=== PATIENT | female | born 1980 | race Asian ===

== ENCOUNTER 2020-01-15 14:26 | Outpatient (CLI) | payer OTHER ==
[2020-01-16 12:23] LABS: SARS-CoV-2 MS2 Positive; SARS-CoV-2 N Gene Negative; SARS-CoV-2 S Gene Negative; SARS-CoV-2 orf1ab Negative
== END 2020-01-15 14:27 | disposition home or self-care (01) ==
LOC: SCSLAB 14:26
PROVIDERS: ATTEND Obstetrics & Gynecology
DX: Z01.812 Encounter for preprocedural laboratory examination (principal); Z11.59 Encounter for screening for other viral diseases
CPT/HCPCS: 87635; U0003

== ENCOUNTER 2020-01-18 11:01 | Inpatient (IN) | payer OTHER, SELFPAY ==
--- NOTE | 2020-01-18 10:04 | HP ---
REASON FOR ADMISSION: A 38 to 39 weeks of gestation with medication-dependent diabetes for repeat section at 38 weeks. HISTORY OF PRESENT ILLNESS: Ms. Butts is an elderly multigravida 39-year-old, G3, P2, x2, who has adult-onset diabetes and hypothyroidism. She has been treated with glyburide through her and has had good glycemic control. She is for repeat section at 38 weeks as indicated for patients with White classification A2 and class B diabetes. 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 Blood type O negative, antibody negative. Pap negative. Rubella immune. VDRL nonreactive. Hepatitis B, GC, chlamydia negative. She is in good glycemic control. FER is 01/29. PAST MEDICAL HISTORY: Hypothyroidism. PAST SURGICAL HISTORY: section. ALLERGIES: DENIES. MEDICATIONS: Synthroid and glyburide. SOCIAL HISTORY: Denies tobacco, alcohol, or IV drug use. FAMILY HISTORY: Noncontributory. REVIEW OF SYSTEMS: Noncontributory. PHYSICAL EXAMINATION: GENERAL: Pleasant, Maur[place] female, 39 years old. VITAL SIGNS: Blood pressure 128/72, pulse 85, respirations 18. HEENT: Within normal limits. LUNGS: Clear to auscultation bilaterally. HEART: Regular rate and rhythm. ABDOMEN: Soft and nontender. Fundal height 41 cm. FHTs 140s. Vulva without lesions. Vagina without discharge. Cervix; closed, long, and high. EXTREMITIES: No clubbing, cyanosis, or edema. IMPRESSION: Gestational diabetes requiring glyburide, suspect probable nongestational adult-onset diabetes, prior section, advanced maternal age, mild hypothyroidism. PLAN: Repeat section on 01/17 with appropriate antibiotic and DVT prophylaxis. Job ID: [id number]
[2020-01-18] MEDS ORDERED: Promethazine HCl 25 MG/ML VIAL IM PRN ×3 (11:41→22:53)
[2020-01-18] MEDS ORDERED: Butorphanol Tartrate 1 MG/ML VIAL SLOW IVP PRN (11:41)
[2020-01-18] MEDS ORDERED: Ondansetron PF 4 MG/2 ML Vial IVP PRN ×3 (11:41→22:53)
[2020-01-18] MEDS ORDERED: Lactated Ringer's 1,000 ML IV SCH (11:41)
[2020-01-18] MEDS ORDERED: hydrALAZINE 20 MG/ML VIAL SLOW IVP PRN ×2 (11:41→22:53)
[2020-01-18 12:28] LABS: Hemoglobin 11.9 g/dL (12.0-16.0); Mean Corpuscular HGB CONC 31.7 g/dL (32.0-36.0); Mean Corpuscular Hemoglobin 24.9 pg (27.0-31.0); Mean Corpuscular Volume 78.6 fL (78.0-98.0); Mean Platelet Volume 9.2 fL (7.4-10.4); Platelet Count 185 thou/uL (130-400); Red Blood Cell (RBC) Count 4.76 mill/uL (4.20-5.40); White Blood Cell (WBC) Count 9.8 thou/uL (4.8-10.8)
[2020-01-18 13:04] LABS: HBSAg Index 0.13 S/CO (0-0.99); Hep B Surf Ag Non-Reactive S/CO (NonReactive); Syphilis Antibody Nonreactive (Nonreactive); Syphilis Antibody Index 0.03 S/CO (<1.00 Non-Reactive)
[2020-01-18 13:15] VITALS: BMI 34.3
[2020-01-18] MEDS ORDERED: Azithromycin 500 MG VIAL ONE (14:06)
[2020-01-18] MEDS ORDERED: Azithromycin 500 MG in Sodium Chloride 0.9% 250 ML 250 ML IVPB SCH (14:30)
[2020-01-18] MEDS ORDERED: Bicitra 30 ML UDCUP PO SCH (14:30)
[2020-01-18] MEDS ORDERED: CEFAZOLIN 2 GM in Premix Bag 1 BAG IVPB SCH (14:30)
[2020-01-18] MEDS: Lactated Ringer's 1,000 ML IV SCH ×2 (14:53→23:07)
[2020-01-18] MEDS ORDERED: Fentanyl 100 MCG/2 ML VIAL ONE (15:15)
[2020-01-18] MEDS ORDERED: EPHEDRINE 25 MG/5 ML SYRINGE ONE (15:16)
[2020-01-18] MEDS ORDERED: Oxytocin 10 UNITS/ML VIAL ONE (15:16)
[2020-01-18] MEDS ORDERED: Ketorolac Tromethamine 30 MG/ML VIAL ONE (15:16)
[2020-01-18] MEDS ORDERED: Ondansetron PF 4 MG/2 ML Vial ONE (15:16)
[2020-01-18] MEDS ORDERED: Dexamethasone 4 mg/ml Vial ONE (15:16)
[2020-01-18] MEDS ORDERED: PHENYLEPHRINE-NS 100 MCG/ML 10 ML SYRINGE ONE (15:16)
[2020-01-18] MEDS ORDERED: MORPHINE 5 MG/10 ML PF VIAL ONE (15:17)
[2020-01-18] MEDS ORDERED: Naloxone HCl 0.4 mg/ml Vial IVP PRN ×2 (16:44)
[2020-01-18] MEDS ORDERED: diphenhydrAMINE 50 MG/ML VIAL IVP PRN (16:44)
[2020-01-18] MEDS ORDERED: Ketorolac Tromethamine 30 MG/ML VIAL IVP PRN (16:44)
[2020-01-18] MEDS ORDERED: L&D-Morphine 4 MG/ML VIAL SLOW IVP PRN (16:44)
[2020-01-18] MEDS ORDERED: Promethazine HCl 25 MG SUPP PR PRN (16:44)
[2020-01-18] MEDS ORDERED: Ondansetron HCl/PF 4 MG/2 ML Vial IVP PRN (16:44)
[2020-01-18] MEDS ORDERED: Meperidine HCl/PF 25 MG/ML VIAL SLOW IVP PRN (16:44)
[2020-01-18] MEDS ORDERED: HYDROmorphone 2 MG/ML VIAL SLOW IVP PRN (16:44)
[2020-01-18] MEDS ORDERED: Naloxone HCl 0.4 mg/ml Vial IV PRN (16:44)
[2020-01-18] MEDS ORDERED: Communication Order-Pharmacy FS SCH (16:45)
--- NOTE | 2020-01-18 16:57 | OP ---
DATE OF PROCEDURE: 01/18/2020 PREOPERATIVE DIAGNOSES: Thirty-eight weeks gestation White classification A2, gestational diabetes with polyhydramnios, large for gestational age, and prior section. POSTOPERATIVE DIAGNOSES: Thirty-eight weeks gestation White classification A2, gestational diabetes with polyhydramnios, large for gestational age, and prior section plus macrosomia. PROCEDURE PERFORMED: Repeat low-transverse section without extension. ROBOTICS SPECIALIST: Fredy Humphreys MD, PGY-2. ANESTHESIA: Subarachnoid block. MEDICATIONS: 2 g Ancef and 500 Zithromax pre-incision. DVT prophylaxis, SCDs. DRAINS: Marsh to gravity. COMPLICATIONS: None. QBL: Approximately 600 mL. OPERATIVE FINDINGS: 1. Vigorous male infant, cephalic presentation, clear fluid, 10 pounds 11 ounces. Apgars 8 and 9 to nursery. 2. Normal-appearing placenta, except for large size. 3. Normal-appearing tubes and ovaries bilaterally. 4. Dense adhesions of uterus to anterior abdominal wall. 5. Hemostasis, clear urine. COUNTS: Correct at the end of the procedure. DISPOSITION: Recovery room in good condition. DESCRIPTION OF PROCEDURE: After obtaining appropriate informed consent, the patient was taken to the operating room and subarachnoid block was achieved without difficulty. The patient was prepped and draped in usual manner for section. Previous Pfannenstiel incised sharply. Incision carried down to the fascia, which was incised superiorly and laterally with curved Goldstein scissors. Rectus was dissected off sharply, superiorly, inferiorly. Dividing in the midline was very difficult due to dense adhesions to the anterior aspect of the uterus. These were taken down in a stepwise manner staying high to avoid injury to the bladder. Once entry into the peritoneal cavity was achieved, adhesions were noted and taken down in a lower uterine segment. Vesicouterine peritoneum was dissected off as well. Fabricio O retractor was placed inside. The lower uterine segment was noted to be quite thin just a few cell layers thick. It was incised sharply well above the level of the bladder. Clear fluid encountered. The infant's head elevated to the hysterotomy and the delivered on the abdomen. Cord clamped and cut, handed off the team in attendance. Usual cord blood sample obtained. Placenta removed manually. Uterus exteriorized, wrapped in a moist laparotomy sponge. Findings as noted. Hysterotomy was closed using a running locking #1 Monocryl suture. Areas of deserosalization of the uterus above the level the hysterotomy were rendered hemostatic using horizontal mattress sutures of #1 chromic. Good hemostasis was encountered; however, just due to the increased degree of ooziness encountered with deserosalization of the uterine musculature. FloSeal was placed across this area and was held pressure with a moist laparotomy sponge for 3 minutes. Good hemostasis was noted after placement. Gutters were irrigated out bilaterally, and re-inspection of the hysterotomy revealed it to be dry. The rectus was inspected, noted to be dry after removing the Fabricio O retractor. Fascia reapproximated using 0 PDS suture x2. Subcutaneous tissue irrigated, rendered hemostatic with Bovie cautery, reapproximated using a 2-0 plain gut. Skin reapproximated using 4-0 Monocryl and Dermabond, and the patient entered into routine postoperative recovery. Job ID: [id number]
[2020-01-18] MEDS ORDERED: Misoprostol 200 MCG TAB ONE (17:56)
[2020-01-18] MEDS ORDERED: Methylergonovine 0.2 MG/ML VIAL ONE (17:56)
[2020-01-18] MEDS ORDERED: Methylergonovine 0.2 MG/ML VIAL IM SCH (19:15)
[2020-01-18] MEDS ORDERED: Misoprostol 200 MCG TAB PR SCH (19:15)
[2020-01-18] MEDS ORDERED: NS / Oxytocin 40 units/1000ml 1,000 ML IV SCH (22:53)
[2020-01-18] MEDS ORDERED: diphenhydrAMINE 25 MG CAP PO PRN (22:53)
[2020-01-18] MEDS ORDERED: Zolpidem Tartrate 5 MG TAB PO PRN (22:53)
[2020-01-18] MEDS ORDERED: Lanolin Ointment 7 GM TUBE TOP PRN (22:53)
[2020-01-18] MEDS ORDERED: Docusate Calcium (SURFAK) 240 MG CAP PO SCH (23:15)
[2020-01-19] MEDS: Lactated Ringer's 1,000 ML IV SCH ×3 (00:11→14:21)
[2020-01-19] MEDS ORDERED: Meperidine HCl/PF 25 MG/ML VIAL IM PRN (04:45)
[2020-01-19] MEDS ORDERED: Butorphanol Tartrate 1 MG/ML VIAL SLOW IVP PRN (04:45)
[2020-01-19] MEDS: Levothyroxine Sodium 88 MCG TAB PO SCH (05:52)
[2020-01-19 07:00] LABS: Hemoglobin 8.7 g/dL (12.0-16.0); Mean Corpuscular HGB CONC 31.8 g/dL (32.0-36.0); Mean Corpuscular Hemoglobin 25.3 pg (27.0-31.0); Mean Corpuscular Volume 79.7 fL (78.0-98.0); Mean Platelet Volume 12.6 fL (7.4-10.4); Platelet Count 145 thou/uL (130-400); RBC Distribution Width 19.5 % (11.5-14.5); Red Blood Cell (RBC) Count 3.44 mill/uL (4.20-5.40)
--- NOTE | 2020-01-19 08:02 | PRG ---
DATE OF SERVICE: 01/19/2020 TIME OF SERVICE: 07. DICTATING FOR: [facility] obstetric hospitalist. SUBJECTIVE: The patient is postoperative day #1. She is resting comfortably. She states her pain is improving. She has ambulated already without any symptoms. OBJECTIVE: VITAL SIGNS: Temperature 98.5, pulse 76, respirations 18, blood pressure 124/56. GENERAL: The patient is resting comfortably. LUNGS: Clear to auscultation bilaterally. HEART: Regular rhythm. ABDOMEN: Soft, nontender, nondistended. Bowel sounds in all 4 quadrants. Incisions intact and dry. Fundus is firm. Perineum has normal lochia. EXTREMITIES: No clubbing, cyanosis, or edema. Marsh output was 800 mL. The patient has voided. Quantitative blood loss is reported as 2858. This is inaccurate as the recorded 2200 blood loss of 1512 was total including the ones recorded by Joyce Lazcano in the chart. Total QBL is approximately 1500 to 1800 mL. LABORATORY DATA: Hematocrit went from 37% to 27.5% with stable platelet count. This is consistent with the patient's QBL. Glucose is 116 this morning, checking every 6 hours. We will discharge as the patient obviously will not need oral antihyperglycemics in the immediate postoperative period. IMPRESSION: A2 diabetes, advanced maternal age, status post repeat section x3, with uterine atony secondary to macrosomia. PLAN: Routine postoperative care. The patient's analgesics have already been sent out electronically to pharmacy preoperatively. Anticipate discharge home on Wednesday, 01/20 with followup at [facility]. Job ID: [id number]
[2020-01-19] MEDS: Docusate Calcium (SURFAK) 240 MG CAP PO SCH ×2 (08:36→22:50)
[2020-01-19] MEDS: Prenatal Vitamin 1 TAB PO SCH (08:36)
[2020-01-19] MEDS ORDERED: Adacel (T-DAP) 0.5 ML SYRINGE IM ONE (09:00)
[2020-01-19] MEDS: HYDROcodone/Acetaminophen 5/325 mg Tablet PO PRN ×3 (10:01→20:31)
[2020-01-19] MEDS: Ibuprofen 800 MG TAB PO SCH (22:51)
[2020-01-20] MEDS: Lactated Ringer's 1,000 ML IV SCH ×3 (00:31→14:46)
[2020-01-20] MEDS: Levothyroxine Sodium 88 MCG TAB PO SCH (05:54)
[2020-01-20] MEDS: Ibuprofen 800 MG TAB PO SCH ×3 (05:54→20:33)
--- NOTE | 2020-01-20 07:23 | PDOC.PP ---
Post Progress Note Post Day #: Post op day 2.. Subjective: Some pain in incision but oral meds helping... PO intake tolerated: yes Flatus: yes Ambulation: yes Vital Signs (12 hours) Temp Pulse Resp BP Pulse Ox 01/20/20 04:50 98.0 F 78 18 110/70 97 01/20/20 00:10 98.7 F 84 18 105/53 L 95 01/19/20 20:30 98.2 F 79 18 119/68 100 Weight Weight 194 lb - Physical Examination Abdominal: + bowel sounds, lochia, no distention, appropriately TTP Result Diagrams: 01/19/20 05:38 Additional Labs: Post Labs Blood Type O NEGATIVE 01/18/20 12:36 Hep Bs Antigen Non-Reactive S/CO (NonReactive) 01/18/20 12:11 - Assessment/Plan Post op day 2 from repeat c/s...Gestational diabetes-glycemic control adequate..Accuchek <150. Progressing well. AMA. Anticipate discharge in AM. Pain meds have been sent by Dr Erickson.
[2020-01-20] MEDS: Prenatal Vitamin 1 TAB PO SCH (09:03)
[2020-01-20] MEDS: Docusate Calcium (SURFAK) 240 MG CAP PO SCH ×2 (09:03→20:33)
[2020-01-20] MEDS: HYDROcodone/Acetaminophen 5/325 mg Tablet PO PRN ×2 (10:28→14:42)
[2020-01-21] MEDS: HYDROcodone/Acetaminophen 5/325 mg Tablet PO PRN ×2 (00:11→12:56)
[2020-01-21] MEDS: Ibuprofen 800 MG TAB PO SCH ×2 (04:13→13:56)
[2020-01-21] MEDS: Lactated Ringer's 1,000 ML IV SCH ×2 (04:16→09:24)
--- NOTE | 2020-01-21 06:19 | PDOC.PP ---
Post Progress Note Post Day #: 2 Subjective: Pain controlled with motrin and norco but sore this morning. Otherwise without complaints. PO intake tolerated: yes Flatus: yes Ambulation: yes Vital Signs (12 hours) Temp Pulse Resp BP Pulse Ox 01/20/20 20:00 98.7 F 85 18 121/58 L 99 Weight Weight 194 lb - Physical Examination General: NAD Respiratory: non-labored breathing Abdominal: lochia (normal), no distention, appropriately TTP Fundus firm & at: below umbilicus Skin: CS incision dry & intact, no rash Neurological: no gross focal deficits Psychiatric: A&Ox3, normal affect Result Diagrams: 01/19/20 05:38 Additional Labs: Post Labs Blood Type O NEGATIVE 01/18/20 12:36 Hep Bs Antigen Non-Reactive S/CO (NonReactive) 01/18/20 12:11 - Assessment/Plan Patient would like to see how her pain is today before deciding if she goes home today. Will have Dr. Erickson reassess later this morning once she's been up and moving around. Encouraged ambulation.
[2020-01-21] MEDS: Levothyroxine Sodium 88 MCG TAB PO SCH (06:42)
[2020-01-21] MEDS: Docusate Calcium (SURFAK) 240 MG CAP PO SCH (09:23)
[2020-01-21] MEDS: Prenatal Vitamin 1 TAB PO SCH (09:23)
[2020-01-21 09:26] VITALS: BP 119/57; TEMP 98.6
== END 2020-01-21 14:25 | disposition home or self-care (01) | DRG 788 ==
LOC: L&D 11:01 → 3SE 22:41
PROVIDERS: ADMIT Obstetrics & Gynecology; ATTEND Obstetrics & Gynecology
PROC: 10D00Z1 Extraction of Products of Conception, Low, Open Approach (ICD-10-PCS; principal; 2020-01-18)
DX: O24.425 Gestational diabetes mellitus in childbirth, controlled by oral hypoglycemic drugs (principal); O40.3XX0 Polyhydramnios, third trimester, not applicable or unspecified; O99.284 Endocrine, nutritional and metabolic diseases complicating childbirth; E03.9 Hypothyroidism, unspecified; Z3A.38 38 weeks gestation of pregnancy; Z37.0 Single live birth
CPT/HCPCS: 36415; 36416; 51702; 85027; 85461; 86780; 86850; 86900; 86901; 87340; 87635; 88307; 90384; 96372; J0456; J0690; J1100; J1885; J2210; J2274; J2405; J2590; J3010; U0003